=== PATIENT | female | born 1975 | race Caucasian/White ===

== ENCOUNTER 2016-12-13 09:33 | Observation (INO) | payer OTHER ==
[~2016-12-13] VITALS: Ht 172.7 cm; Wt 75.0 kg
[2016-12-13 09:35] VITALS: BP 132/75; PULSE 81; RESP 14; TEMP 98.5; O2SAT 97
[2016-12-13] MEDS ORDERED: SODIUM CHLOR 0.9% 1000 ML INJ 1,000 ML IV ONE (11:30)
[2016-12-13] MEDS ORDERED: SODIUM CHLORIDE 0.9% FLUSH 10 ML FLUSH IVF PRN (11:30)
[2016-12-13 11:42] LABS: AUTOMATED NEUTROPHIL # 8.4 TH/MM3 (1.8-7.7); BASOPHIL # 0.1 TH/MM3 (0-0.2); BASOPHIL % 0.6 % (0.0-2.0); EOSINOPHIL % 0.2 % (0.0-4.0); HEMO FLAGS DIFF FINAL; LYMPH % 17.7 % (9.0-44.0); MEAN CELL VOLUME 93.5 FL (80.0-100.0); MEAN CORPUSCULAR HEMOGLOBIN 30.8 PG (27.0-34.0); MEAN CORPUSCULAR HGB CONC 32.9 % (32.0-36.0); MONO % 7.2 % (0.0-8.0); NEUT % 74.3 % (16.0-70.0); PLATELET COUNT 242 TH/MM3 (150-450); RED BLOOD COUNT 5.03 MIL/MM3 (4.00-5.30); RED CELL DISTRIBUTION WIDTH 13.2 % (11.6-17.2); WHITE BLOOD COUNT 11.2 TH/MM3 (4.0-11.0)
--- NOTE | 2016-12-13 11:48 | RADRPT ---
EXAM DATE/TIME: 12/13/2016 11:33 [place] COMPARISON: No previous studies available for comparison. INDICATIONS : Chest pain. MEDICAL HISTORY : Smoker. SURGICAL HISTORY : Tonsillectomy. ENCOUNTER: Initial ACUITY: 1 day PAIN SCORE: 6/10 LOCATION: chest FINDINGS: PA and lateral views of the chest demonstrate the lungs to be symmetrically aerated without evidence of mass, infiltrate or effusion. The cardiomediastinal contours are unremarkable. Osseous structure s are intact. CONCLUSION: No acute disease. Aureliano Viera MD on December 13, 2016 at 11:47 Board Certified Radiologist. This report was verified electronically.
[2016-12-13 11:54] LABS: ANION GAP 8 MEQ/L (5-15); APTT (PATIENT) 27.1 SEC (24.3-30.1); AST (GOT) 14 U/L (15-37); BICARBONATE 24.3 MEQ/L (21.0-32.0); BLOOD UREA NITROGEN 6 MG/DL (7-18); CHLORIDE 108 MEQ/L (98-107); GLOMERULAR FILTRATION RATE 96 ML/MIN (>89); POTASSIUM 3.6 MEQ/L (3.5-5.1); PROTHROMBIN TIME - PATIENT 10.6 SEC (9.8-11.6); SODIUM (NA) 140 MEQ/L (136-145)
[2016-12-13 11:55] LABS: ALT (GPT) 17 U/L (10-53)
[2016-12-13 11:59] LABS: ALKALINE PHOSPHATASE 73 U/L (45-117); TOTAL BILIRUBIN ADULT 0.6 MG/DL (0.2-1.0)
[2016-12-13 12:00] VITALS: BP 113/59; PULSE 72; RESP 17; O2SAT 97
[2016-12-13 12:03] LABS: CREATINE KINASE 70 U/L (26-192)
--- NOTE | 2016-12-13 13:38 | PD ---
HPI Chief Complaint: Cardiac Complaint Time Seen by Provider: 11:01 Travel History International Travel<30 days: No Contact w/Intl Traveler<30days: No Traveled to known affect area: No History of Present Illness HPI Patient is a 41-year-old female with history of smoking, who comes in complaining of palpitations and chest pressure. She says she was sleeping when she woke up and felt like her heart was racing. She then developed a sensation of pressure in the middle of her chest. She says this has continued, so she came into the emergency department. She denies shortness of breath. She has not had any nausea or vomiting. She says this has never happened before. She denies fever or chills. She denies recent travel or any leg swelling. PFSH Past Medical History Medical History: Denies Significant Hx Diminished Hearing: No Tetanus Vaccination: > 5 Years Influenza Vaccination: Yes ?: Not LMP: 11/25/16 : 2 Para: 2 Miscarriage: 0 : 0 Past Surgical History Abdominal Surgery: Yes (laparascopy) Tonsillectomy: Yes Social History Alcohol Use: No Tobacco Use: Yes (1 pack per day) Substance Use: No Allergies-Medications (Allergen,Severity, Reaction): Coded Allergies: No Known Allergies (Unverified , 12/13/16) Reported Meds & Prescriptions Reported Meds & Active Scripts Active No Active Prescriptions or Reported Medications Review of Systems Except as stated in HPI: all other systems reviewed are Neg General / Constitutional: No: Fever, Chills Eyes: No: Blurred Vision HENT: No: Headaches, Lightheadedness Cardiovascular: Positive: Chest Pain or Discomfort, Palpitations Respiratory: No: Cough, Shortness of Breath Gastrointestinal: No: Nausea, Vomiting Musculoskeletal: No: Myalgias, Edema Skin: No Rash, No Change in Pigmentation Neurologic: No: Weakness, Dizziness Physical Exam Narrative GENERAL: Awake and alert, in no acute distress. SKIN: Focused skin assessment warm/dry. HEAD: Atraumatic. Normocephalic. EYES: Pupils equal and round. No scleral icterus. ENT: No nasal bleeding or discharge. Mucous membranes pink and moist. NECK: Trachea midline. No JVD. CARDIOVASCULAR: Regular rate and rhythm. No murmur appreciated. RESPIRATORY: No accessory muscle use. Clear to auscultation. Breath sounds equal bilaterally. GASTROINTESTINAL: Abdomen soft, non-tender, nondistended. MUSCULOSKELETAL: No obvious deformities. No clubbing. No cyanosis. No edema. NEUROLOGICAL: Awake and alert. No obvious cranial nerve deficits. Motor grossly within normal limits. Normal speech. PSYCHIATRIC: Appropriate mood and affect; insight and judgment normal. Data Data Last Documented VS Vital Signs Date Time Temp Pulse Resp B/P (MAP) Pulse Ox O2 Delivery O2 Flow Rate FiO2 12/13/16 12:00 72 17 113/59 (77) 97 Room Air 12/13/16 09:35 98.5 Orders Orders Electrocardiogram (12/13/16 ) Ckmb (Isoenzyme) Profile (12/13/16 11:18) Complete Blood Count With Diff (12/13/16 11:18) Comprehensive Metabolic Panel (12/13/16 11:18) D-Dimer (12/13/16 11:18) Prothrombin Time / Inr (Pt) (12/13/16 11:18) Act Partial Throm Time (Ptt) (12/13/16 11:18) Troponin I (12/13/16 11:18) Ecg Monitoring (12/13/16 11:18) Bilateral Bp Monitoring (12/13/16 11:18) Iv Access Insert/Monitor (12/13/16 11:18) Oximetry (12/13/16 11:18) Oxygen Administration (12/13/16 11:18) Sodium Chloride 0.9% Flush (Ns Flush) (12/13/16 11:30) Chest, Pa & Lat (12/13/16 11:18) Sodium Chlor 0.9% 1000 Ml Inj (Ns 1000 M (12/13/16 11:30) Thyroid Stimulating Hormone (12/13/16 12:09) Labs Laboratory Tests Test 12/13/16 11:25 White Blood Count 11.2 TH/MM3 Red Blood Count 5.03 MIL/MM3 Hemoglobin 15.5 GM/DL Hematocrit 47.0 % Mean Corpuscular Volume 93.5 FL Mean Corpuscular Hemoglobin 30.8 PG Mean Corpuscular Hemoglobin Concent 32.9 % Red Cell Distribution Width 13.2 % Platelet Count 242 TH/MM3 Mean Platelet Volume 7.2 FL Neutrophils (%) (Auto) 74.3 % Lymphocytes (%) (Auto) 17.7 % Monocytes (%) (Auto) 7.2 % Eosinophils (%) (Auto) 0.2 % Basophils (%) (Auto) 0.6 % Neutrophils # (Auto) 8.4 TH/MM3 Lymphocytes # (Auto) 2.0 TH/MM3 Monocytes # (Auto) 0.8 TH/MM3 Eosinophils # (Auto) 0.0 TH/MM3 Basophils # (Auto) 0.1 TH/MM3 CBC Comment DIFF FINAL Differential Comment Prothrombin Time 10.6 SEC Prothromb Time International Ratio 1.0 RATIO Activated Partial Thromboplast Time 27.1 SEC D-Dimer Quantitative (PE/DVT) 0.24 MG/L FEU Blood Urea Nitrogen 6 MG/DL Creatinine 0.68 MG/DL Random Glucose 87 MG/DL Total Protein 7.6 GM/DL Albumin 4.1 GM/DL Calcium Level 9.2 MG/DL Alkaline Phosphatase 73 U/L Aspartate Amino Transf (AST/SGOT) 14 U/L Alanine Aminotransferase (ALT/SGPT) 17 U/L Total Bilirubin 0.6 MG/DL Sodium Level 140 MEQ/L Potassium Level 3.6 MEQ/L Chloride Level 108 MEQ/L Carbon Dioxide Level 24.3 MEQ/L Anion Gap 8 MEQ/L Estimat Glomerular Filtration Rate 96 ML/MIN Total Creatine Kinase 70 U/L Troponin I LESS THAN 0.02 NG/ML Thyroid Stimulating Hormone 3rd Gen 0.625 uIU/ML MDM Medical Decision Making Medical Screen Exam Complete: Yes Emergency Medical Condition: Yes Medical Record Reviewed: Yes Interpretation(s) ECG shows normal sinus rhythm at 78, no ST elevation or depression, normal intervals Differential Diagnosis Hyperthyroidism versus dehydration versus PE versus ACS Narrative Course Patient is a 41-year-old female comes in complaining of chest pain and palpitations. Exam shows no acute abnormalities. IV established, labs sent. Patient connected to the monitoring analyst. Labs show no acute abnormalities. Troponin and d-dimer are negative. Patient given aspirin. Based on her story and history of smoking, I believe patient would benefit from a chest pain rule out. She'll be placed in the chest pain center for further management. Diagnosis Primary Impression: Chest pain Qualified Codes: R07.9 - Chest pain, unspecified Admitting Information Admitting Physician Requests: Observation Scripts No Active Prescriptions or Reported Meds Nyla Grant MD Dec 13, 2016 13:38
[2016-12-13] MEDS ORDERED: ASPIRIN 81 MG CHEW TAB CHEW ONE (13:45)
[2016-12-13 14:30] VITALS: BP_SYST 111; BP_SYST 112; BP_DIAS 56; PULSE 72
[2016-12-13] MEDS ORDERED: ONDANSETRON HCL 4 MG/2 ML VIAL IV PUSH PRN (14:30)
[2016-12-13] MEDS ORDERED: NITROGLYCERIN 0.4 MG SL 25 TABS/BTL SL PRN (14:30)
[2016-12-13] MEDS ORDERED: SODIUM CHLORIDE 0.9% FLUSH 10 ML FLUSH IV FLUSH PRN (14:30)
[2016-12-13] MEDS ORDERED: ACETAMINOPHEN 500 MG CPLT PO PRN (14:30)
[2016-12-13 14:34] VITALS: O2SAT 97
[2016-12-13 15:29] VITALS: BP 111/56; PULSE 74; RESP 17; O2SAT 99
[2016-12-13 15:47] LABS: CREATINE KINASE 54 U/L (26-192)
[2016-12-13] MEDS ORDERED: SODIUM CHLORIDE 0.9% FLUSH 10 ML FLUSH IV FLUSH SCH (21:00)
--- NOTE | 2016-12-13 21:34 | EKG ---
Date Performed: 12/13/2016 Time Performed: 09:47:33 PTAGE: 41 years EKG: Sinus rhythm NORMAL ECG NO PREVIOUS TRACING DOCTOR: Leno Castillo Interpretating Date/Time 12/13/2016 21:32:38
[2016-12-14] MEDS ORDERED: ASPIRIN 325 MG TAB PO SCH (09:00)
--- NOTE | 2016-12-14 18:25 | EKG ---
Date Performed: 12/13/2016 Time Performed: 14:38:16 PTAGE: 41 years EKG: Sinus rhythm NORMAL ECG PREVIOUS TRACING : 12/13/2016 09.47 Since previous tracing, no significant change noted DOCTOR: Sudhir Beltran Interpretating Date/Time 12/14/2016 18:24:01
== END 2016-12-13 15:31 | disposition left against medical advice (07) ==
LOC: NEPE 09:33 → NEDA 13:41
PROVIDERS: ADMIT Internal Medicine Interventional Cardiology; ATTEND Internal Medicine Interventional Cardiology
DX: R07.89 Other chest pain (principal); R00.2 Palpitations; F17.200 Nicotine dependence, unspecified, uncomplicated
CPT/HCPCS: 71020; 80053; 82550; 84443; 84484; 85025; 85379; 85610; 85730; 93005; 96360; G0378; J7030